=== PATIENT | female | born 1985 | race Two or more races ===

== ENCOUNTER 2018-03-20 01:27 | Emergency (ER) | payer BC, MEDICAID ==
[~2018-03-20] VITALS: Ht 154.9 cm; Wt 49.9 kg
--- NOTE | 2018-03-20 02:25 | Emergency Room Report ---
History of Present Illness General Chief Complaint: Allergic Reaction Source: Patient Present Illness HPI Patient has had hives and muscle aches for 2 days. She also had a headache last night. She had a similar reaction when she ate strawberries although she had facial swelling at that time, not now. She feels this is an allergic reaction. She took some Ana Maria [id number] and this hasn't helped much. No documented fevers. No throat swelling, difficulty breathing or wheezing. The patient is breast-feeding. The child is 9 months old. No period since delivery. She also feels nauseated. No vomit or change in bowels. No dysuria. She's also had right upper quadrant pain. Pain rated (both aches and stomach) 8 /10, aching. Not radiating. Allergies: Uncoded Allergies: STRAWBERRIES (Allergy, Intermediate, pressure in chest, 03/20/18) Patient History Past Medical History: see triage record Social History: Denies: smoking, alcohol use, drug use Social History Narrative with daughter and Last Menstrual Period: 08/2016 Now: No - just had a baby 9 months Reviewed Nursing Documentation: PMH: Agreed; PSxH: Agreed Nursing Documentation-PMH Past Medical History: No Stated History Review of Systems All Other Systems: negative except mentioned in HPI Physical Exam Vital Signs Date Time Temp Pulse Resp B/P (MAP) Pulse Ox O2 Delivery O2 Flow Rate FiO2 03/20/18 01:41 98.2 91 16 125/82 97 Room Air 98.2 Sp02 EP Interpretation: reviewed, normal General Appearance: well appearing, no apparent distress, GCS 15 Head: normocephalic Eyes: bilateral eye normal inspection, bilateral eye PERRL ENT: normal pharynx, no angioedema, moist mucus membranes Neck: supple Respiratory: lungs clear, normal breath sounds Cardiovascular #1: regular rate, rhythm Cardiovascular #2: 2+ radial (R) Gastrointestinal: normal inspection, normal bowel sounds, non tender, no mass, non-distended Genitourinary: no CVA tenderness Musculoskeletal: back normal, gait/station normal, normal range of motion Neurologic: alert, oriented x3, grossly normal Psychiatric: mood/affect normal Skin: warm/dry, other - wheal flare reaction trunk and extremities. No periorbital edema Medical Decision Making Diagnostic Impression: Primary Impression: Hives Additional Impression: Nausea ER Course Patient presents with hives and aches with nausea. DDx: allergic reaction, viral infection, early amongst others. She is breast feeding. No evidence of anaphylaxis. Solumedrol and benadryl indicated. Also need UA and test. Also zofran ordered. Preg neg. Improved with treatment. Discussed meds will be in breast milk. Patient stable for outpatient observation and treatment. Laboratory Tests Test 03/20/18 02:26 Urine Color Pale yellow Urine Appearance Clear Urine pH 5 (4.5-8.0) Urine Specific [place] 1.010 (1.005-1.035) Urine Protein Negative (NEGATIVE) Urine Glucose (UA) Negative (NEGATIVE) Urine Ketones Negative (NEGATIVE) Urine Blood 1+ (NEGATIVE) H Urine Nitrite Negative (NEGATIVE) Urine Bilirubin Negative (NEGATIVE) Urine Urobilinogen Normal MG/DL (0.0-1.0) Urine Leukocyte Esterase Negative (NEGATIVE) Urine RBC 0-2 /HPF (0 - 2) Urine WBC 2-4 /HPF (0 - 2) Urine Squamous Epithelial Cells Few /LPF (NONE/OCC) Urine Bacteria Few /HPF (NONE) Urine HCG, Qualitative Negative (NEGATIVE) Last Vital Signs Date Time Temp Pulse Resp B/P (MAP) Pulse Ox O2 Delivery O2 Flow Rate FiO2 03/20/18 03:33 98.2 16 125/82 97 Room Air 98.2 03/20/18 03:33 61 Status: improved Disposition: HOME, SELF-CARE Condition: Improved Scripts Ondansetron Odt* (ZOFRAN ODT*) 4 Mg Tab.rapdis 4 MG BC EVERY 8 HOURS, #6 TAB 1 Refill Prov: Mendel Jacques M.D. 03/20/18 Diphenhydramine Hcl* (BENADRYL*) 25 Mg Capsule 25 MG ORAL Q6H PRN for Itching, #14 CAP 1 Refill Prov: Mendel Jacques M.D. 03/20/18 Prednisone* (PREDNISONE*) 20 Mg Tablet 40 MG ORAL DAILY, #6 TAB Prov: Mendel Jacques M.D. 03/20/18 Referrals: NON PHYSICIAN (PCP) Mendel Jacques M.D. Mar 20, 2018 02:25
[2018-03-20] MEDS ORDERED: DiphenhydrAMINE 50mg/ml Inj IVP ONE (02:30)
[2018-03-20] MEDS ORDERED: Solu-MEDROL 125mg Inj IVP ONE (02:30)
[2018-03-20 02:41] LABS: APPEARANCE,URINE CLEAR; BILIRUBIN, URINE NEGATIVE (NEGATIVE); COLOR,URINE PALE YELLOW; GLUCOSE, URINE (UA) NEGATIVE (NEGATIVE); KETONES,URINE NEGATIVE (NEGATIVE); LEUKOCYTE ESTERASE ,URINE NEGATIVE (NEGATIVE); NITRITE,URINE NEGATIVE (NEGATIVE); PH,URINE 5 (4.5-8.0); PROTEIN,URINE NEGATIVE (NEGATIVE); UROBILINOGEN,URINE NORMAL MG/DL (0.0-1.0)
[2018-03-20] MEDS ORDERED: ONDANSETRON ODT4 MG BC (03:25)
[2018-03-20] MEDS ORDERED: BENADRYL25 MG ORAL (03:25)
[2018-03-20] MEDS ORDERED: PREDNISONE20 MG ORAL (03:25)
[2018-03-20 03:33] VITALS: BP_SYST 103; BP_SYST 125; BP_DIAS 63; BP_DIAS 82
== END 2018-03-20 03:34 | disposition home or self-care (01) ==
LOC: EMR 02:12
DX: L50.9 Urticaria, unspecified (principal); R11.0 Nausea; Z91.018 Allergy to other foods
CPT/HCPCS: 81003; 81025; 96374; 96375; 99284; J1200; J2405; J2930